=== PATIENT | male | born 1965 | race Caucasian/White ===

== ENCOUNTER 2016-11-22 19:51 | Inpatient (IN) | payer MEDICARE, OTHER ==
--- NOTE | ~2016-11-22 | PN ---
Unit #: [id number] #: [id number] Patient: ARABELLA MCCOY [id number] [facility] [address] [place] [address] [id number] I MR#: [id number] NAME: ARABELLA MCCOY ROOM: [facility] Age: 51 Sex: M Admission Date: 11/22/2016 : 1965 Attending Physician: Jorge Jang M.D. Admitting Physician: Jorge Jang M.D. Primary Care Physician: Primary Care Physician Sylvie [facility] PROGRESS NOTES DATE OF SERVICE: 12/04/2016 SUBJECTIVE Mr. Simons is a 51-year-old white male who was seen today and chart was reviewed, and case was discussed with the staff. He has been anxious, withdrawn, and rather seclusive himself. Meanwhile, he has been cooperative with treatment recommendation and has been taking the medications and tolerating them fairly well with no reported side effects. MENTAL STATUS EXAMINATION Middle-aged white male who was casually dressed with fair personal hygiene, appears to be in no acute distress or discomfort. He was awake and alert on interaction with intact orientation. His mood was anxious with a congruent affect. His speech was slow and tangential. His thought processes were disorganized with some looseness of associations. His insight and judgment remain slightly impaired. TREATMENT PLAN 1. We will continue him on his current medications and treatment protocol. We will monitor his response to medications and make further adjustments as needed. 2. We will continue to follow up. Dictated by... Nanci Stevenson/omaira TD: 12/04/2016 13:59 JOB #: [id number] [facility] PROGRESS NOTES Page 1 of 1 X Jorge Jang MD PROGRESS NOTE
--- NOTE | ~2016-11-22 | PN ---
Unit #: [id number] #: [id number] Patient: ARABELLA MCCOY [id number] [facility] [address] [place] [address] [id number] MR#: [id number] NAME: ARABELLA MCCOY ROOM: P121 Age: 51 Sex: M Admission Date: 11/22/2016 : 1965 Attending Physician: Jorge Jang M.D. Admitting Physician: Jorge Jang M.D. Primary Care Physician: Primary Care Physician Sylvie VILLALTA NOTES DATE 11/29/2016 DISCUSSION Mr. Mccoy is a 51-year-old white male who was seen today and chart was reviewed and case was discussed with the staff. He reports persistent depression and anxiety. Feelings of hopelessness and suicidal ideations. Meanwhile, he was seen in consultation by Dr. Randolph for ECT and it was on patient's own request. However, Dr. Randolph does not feel that patient is a good candidate for ECT or was going benefit much from that treatment modality and as such medications has been maintained with ongoing adjustment and participation and therapy groups. MENTAL STATUS EXAMINATION Middle-aged white male who was casually dressed with fair personal hygiene and appears to be in no acute distress or discomfort. He was awake and alert on interaction with intact orientation. His mood was anxious and depressed with congruent affect. His speech is slow and restricted in content. He reports having suicidal ideations but denies any homicidal ideations. His insight and judgement remains significantly impaired. TREATMENT PLAN 1. Will continue on his current medications and treatment protocol. Will monitor his response to the medications and make further adjustments as needed. 2. Will continue to follow up. Dictated by... Nanci Stevenson/mary TD: 11/30/2016 16:45 JOB #: [id number] Unit #: [id number] #: [id number] Patient: ARABELLA MCCOY AMBAR NOTES Page 1 of 1 X Jorge Jang MD PROGRESS NOTE
--- NOTE | ~2016-11-22 | DS ---
Unit #: [id number] #: [id number] Patient: ARABELLA MCCOY [id number] [facility] [place] [address] [id number] I MR#: [id number] NAME: ARABELLA MCCOY ROOM: [facility] Age: 51 Sex: M Admission Date: 11/22/2016 : 1965 Discharge Date: 12/04/2016 Attending Physician: Jorge Jang M.D. Primary Care Physician: Primary Care Physician No DISCHARGE SUMMARY IDENTIFYING DATA Mr. Simons is a 51-year-old white male who was self-referred to the hospital. DISCHARGE DIAGNOSES Psychiatric: Bipolar disorder, most recent episode depressed, recurrent, moderate, without psychotic features. Medical: Hypertension, dyslipidemia, coronary artery disease. Stressors: Moderate psychosocial stressors. HISTORY OF PRESENT ILLNESS Please see initial psychiatric evaluation for details. PAST PSYCHIATRIC HISTORY Please see initial psychiatric evaluation for details. PAST MEDICAL HISTORY Please see initial psychiatric evaluation for details. HOSPITAL COURSE The patient was [facility] and was oriented to the hospital environment. Routine p.r.n. medications were initiated, and he was started back on his home medications including his Seroquel and medications were adjusted. He was referred to Dr. Randolph for ECT since Effexor was started and then later increased, and he was closely monitored and appears taking the medication regularly and was tolerating them fairly well and was able to show a decent therapeutic response and as such, it was decided that he will be discharged home and will continue treatment on an outpatient basis. DISCHARGE CONDITION Stable. PROGNOSIS Fair. Dictated by... Jorge Jang M.D. Unit #: [id number] #: [id number] Patient: ARABELLA MCCOY IAA/modl TD: 12/28/2016 12:05 JOB #: [id number] DISCHARGE SUMMARY Page 1 of 1 X Jorge Jang MD X DISCHARGE SUMMARY
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
--- NOTE | ~2016-11-22 | CO ---
Unit #: [id number] #: [id number] Patient: ARABELLA MCCOY [id number] [facility] [address] [place] [address] [id number] MR#: [id number] NAME: ARABELLA MCCOY ROOM: [facility] Age: 51 Sex: M Admission Date: 11/22/2016 : 1965 Attending Physician: Jorge Jang M.D. Primary Care Physician: Primary Care Physician No CONSULTATION REPORT REASON FOR CONSULTATION To evaluate for appropriateness of electroconvulsive therapy. HISTORY OF PRESENT ILLNESS The patient is a 51-year-old gentleman, who [facility] with a long history of polysubstance abuse including abuse of crystal meth in the past. The patient complains of depression, loss of interest, decreased appetite, poor focus and concentration, chronic depression that has been ongoing for the last twenty-plus years. He has a very long history of substance abuse which includes LSD in the past, cocaine, marijuana, more recently crystal meth. There have been no successful forays into treatment programs that I can tell from his record and he doesn't indicate that he has ever been in treatment. He has no specific plan for maintaining any sobriety and there doesn't seem to be any plan in place at this point to keep him from using drugs again. The patient also has a history of alcohol abuse which is indicated in his medical record where he is drinking, at least, two or three beers a day. On evaluation, the patient does appear to be depressed. He does have some psychomotor retardation difficulty in articulating his speech. He complains of depression, loss of interest in activities, no expressed suicidal ideation was noted on evaluation with me today. He continues to be fairly unkempt, disheveled, a little bit anxious and some disorganization noted in his thought process, but for the most part, he is coherent. SUBSTANCE ABUSE HISTORY As stated above, he has a history of alcohol, cannabis, methamphetamine abuse. He has used hallucinogens in the past and, in his words, pretty much anything he can get his hands on when he was younger. PAST PSYCHIATRIC HISTORY He has been treated at inpatient hospital before he was apparently at [facility] recently at which point he was given a few ECTs but it doesn't seem to have had much of an effect. He has been on Seroquel not really responding much to that. He has been on Zoloft and Paxil in the past though he really doesn't indicate that he has had much of a response to that but there doesn't seem to be much else in the way of pharmacologic trials in the past to treat his depressive symptoms and it doesn't seem to be much in the way of any periods of sobriety in which he has been treated in the past either. PAST MEDICAL HISTORY The patient has a history of substance abuse as stated above. He has high Unit #: [id number] #: [id number] Patient: ARABELLA MCCOY blood pressure, hyperlipidemia, coronary artery disease, and has had two heart attacks in the past, history of angioplasty and he does have stents. There has been some report of a seizure disorder. He has peripheral vascular disease. He has had a bilateral fem-pop done in the past and he has a history of diabetes. PAST SURGICAL HISTORY He has had abdominal surgery for appendectomy and also surgery on his right elbow in the past. ALLERGIES He is allergic to IV dye. MEDICATIONS Please see the patient's hospital MAR for full list of medications. PHYSICAL EXAMINATION The patient's physical was performed, charted, and noted by the house physician at the time of his admission on the 23 of December. FAMILY/SOCIAL HISTORY Please see his psychiatric hospital record for full details. MENTAL STATUS EXAMINATION On exam, the patient is cooperative, he is sitting alert on his bed. He does answer questions appropriately. He has some difficulty articulating his speech but he is able to express his thoughts and feelings in a clear and coherent manner. The patient's thought process appears to be goal-directed and organized today. There is no evidence of psychosis noted. Memory and concentration are fully intact and he is oriented to person, place, time, and situation today. His insight and judgment are fair. Intelligence appears to be within the normal range for a person with his educational background. The patient's insight and judgment are fair. He has no homicidal ideation and no stated suicidal ideation noted today. PROGNOSIS Fair. STRENGTHS Include, access to care. BARRIERS Chronic substance abuse with no real clear outline or plan of how he is going to maintain any sobriety in the future. DIFFERENTIAL DIAGNOSIS Goodridge I: F34.1. Polysubstance abuse particularly crystal meth abuse, and Alcohol abuse vs dependence. Goodridge II: Deferred. Goodridge III: Nothing acute. Goodridge IV: Goodridge V: PLAN 1. The patient doesn't really much meet the criteria for electroconvulsive therapy at this point. There is no real clear plan Unit #: [id number] #: [id number] Patient: ARABELLA MCCOY for what is going to be done to keep him from using drugs again once he gets out of the hospital. He didn't seem to get anything out of the ECTs that he received at [facility] so it is pretty unclear that he is going to get any kind of benefit from it here, and it doesn't really seem that he has had much of an adequate pharmacological trial to treat his mood symptoms and certainly doesn't have any significant periods of sobriety in order to track his actual mood response, so in the absence of any of that kind of planning it is very unlikely that the ECT is going to be of any benefit for him. 2. No additional recommendations. Dictated by... Ozzie Randolph M.D. ROMULO/lorne TD: 11/27/2016 11:46 JOB #: [id number] CONSULTATION REPORT Page 1 of 1 X Ozzie Randolph MD <ELECTRONICALLY SIGNED> 04/24/17 1702 X CONSULTATION REPORT
--- NOTE | ~2016-11-22 | PN ---
Unit #: [id number] #: [id number] Patient: ARABELLA MCCOY [id number] [facility] [address] [place] [address] [id number] MR#: [id number] NAME: ARABELLA MCCOY ROOM: P121 Age: 51 Sex: M Admission Date: 11/22/2016 : 1965 Attending Physician: Jorge Jang M.D. Admitting Physician: Jorge Jang M.D. Primary Care Physician: Primary Care Physician Sylvie CONNORS PROGRESS NOTES DATE 11/24/2016 DISCUSSION Mr. Mccoy is a 51-year-old white male with mood disorder and psychosis who was seen today and chart was reviewed and case was discussed with the staff. He was once again seen to be rather rambling and mumbling at best and having significant issues expressing himself with some thought blocking. Meanwhile, he has been cooperative with treatment recommendations and has been taking medications and tolerating them fairly well. MENTAL STATUS EXAMINATION Middle-aged white male who was casually dressed with marginal personal hygiene and appears to be in no acute distress or discomfort. He was awake and alert with impaired attention and concentration. His mood was anxious with congruent affect. His speech is slow and restricted in content. His thought processes were disorganized with some looseness of associations and flight of ideas. His insight and judgement remains significantly impaired. TREATMENT PLAN 1. Will continue his current medications and treatment protocol. Will monitor his response to medications and make further adjustments as needed. 2. Will continue to follow up. Dictated by... Nanci Stevenson/mary TD: 11/24/2016 15:43 JOB #: [id number] Unit #: [id number] #: [id number] Patient: ARABELLA MCCOY PROGRESS NOTES Page 1 of 1 X Jorge Jang MD PROGRESS NOTE
--- NOTE | ~2016-11-22 | PN ---
Unit #: [id number] #: [id number] Patient: ARABELLA MCCOY [id number] [facility] [address] [place] [address] [id number] MR#: [id number] NAME: ARABELLA MCCOY ROOM: P121 Age: 51 Sex: M Admission Date: 11/22/2016 : 1965 Attending Physician: Jorge Jang M.D. Admitting Physician: Jorge Jang M.D. Primary Care Physician: Primary Care Physician Sylvie CONNORS PROGRESS NOTES DATE December 02, 2016 DISCUSSION Mr. Mccoy is a 51-year-old white male, who was seen today and chart was reviewed and the case was discussed with the staff. He has been anxious, withdrawn, and seclusive to himself. He has been cooperative with the treatment recommendations and he has been taking the medications and tolerating them fairly well. MENTAL STATUS EXAMINATION Middle-aged white male, who was casually dressed with fair personal hygiene and appears to be in no acute distress or discomfort. He was awake and alert on interaction with intact orientation. His mood is anxious with a congruent affect. His speech is slow and goal-directed. He denies any suicidal or homicidal ideations. His insight and judgment remain slightly impaired. TREATMENT PLAN 1. We will continue him on his current medications and treatment protocol, and will monitor his response to the medications, and make further adjustments as needed. 2. We will continue to followup. Dictated by... Nanci Stevenson/lorne TD: 12/05/2016 10:45 JOB #: [id number] Unit #: [id number] #: [id number] Patient: ARABELLA MCCOY PROGRESS NOTES Page 1 of 1 X Jorge Jang MD PROGRESS NOTE
--- NOTE | ~2016-11-22 | PN ---
Unit #: [id number] #: [id number] Patient: ARABELLA MCCOY [id number] [facility] [address] [place] [address] [id number] MR#: [id number] NAME: ARABELLA MCCOY ROOM: P121 Age: 51 Sex: M Admission Date: 11/22/2016 : 1965 Attending Physician: Jorge Jang M.D. Admitting Physician: Jorge Jang M.D. Primary Care Physician: Primary Care Physician Sylvie VILLALTA NOTES DATE 11/30/2016 DISCUSSION Mr. Mccoy is a 51-year-old, white male who was seen today and chart was reviewed and case was discussed with the staff. He has been anxious, withdrawn though has not shown any agitation, irritability and he has been cooperative with treatment recommendations and has been taking medications and tolerating them fairly well with no reported side effects. MENTAL STATUS EXAM Middle-aged male who was casually dressed with fair personal hygiene, appears to be in no acute distress or discomfort. He was awake and alert on interaction with intact orientation. His mood was anxious with congruent affect. His speech was slow and restricted in content. His thought processes were disorganized with some looseness of associations and flight of ideas and auditory hallucinations. His insight and judgement remains significantly impaired. TREATMENT PLAN 1. We will continue him on his current medications and treatment protocol. We will monitor his response to the medications and make further adjustments as needed. 2. We will continue to follow up. Dictated by... Nanci Stevenson/chaka TD: 12/04/2016 03:06 JOB #: [id number] Unit #: [id number] #: [id number] Patient: ARABELLA MCCOY PROGRESS NOTES Page 1 of 1 X Jorge Jang MD PROGRESS NOTE
--- NOTE | ~2016-11-22 | PN ---
Unit #: [id number] #: [id number] Patient: ARABELLA MCCOY [id number] [facility] [address] [place] [address] [id number] MR#: [id number] NAME: ARABELLA MCCOY ROOM: P121 Age: 51 Sex: M Admission Date: 11/22/2016 : 1965 Attending Physician: Jorge Jang M.D. Admitting Physician: Jorge Jang M.D. Primary Care Physician: Primary Care Physician Sylvie CONNORS PROGRESS NOTES DATE November 26, 2016 DISCUSSION Mr. Mccoy is a 51-year-old white male, who was seen today and chart was reviewed and the case was discussed with the staff. He has been anxious, withdrawn, but has not shown any agitation or irritability and has been calm and cooperative but has been having bizarre behavior with persistent depressive symptoms and has been participating. MENTAL STATUS EXAMINATION Young white male, who was casually dressed with fair personal hygiene and appears to be in no acute distress or discomfort. He was awake and alert on interaction with intact orientation. His mood is anxious with a congruent affect. He reports having suicidal ideation but denies homicidal ideations, and also denies any auditory or visual hallucinations. His insight and judgment remain slightly impaired. TREATMENT PLAN 1. We will continue him on his current medications and treatment protocol, and will monitor his response to the medications, and make further adjustments as needed. 2. We will continue to followup. Dictated by... Nanci Stevenson/lorne TD: 11/27/2016 09:30 JOB #: [id number] Unit #: [id number] #: [id number] Patient: ARABELLA MCCOY PROGRESS NOTES Page 1 of 1 X Jorge Jang MD PROGRESS NOTE
--- NOTE | ~2016-11-22 | PN ---
Unit #: [id number] #: [id number] Patient: ARABELLA MCCOY [id number] [facility] [address] [place] [address] [id number] I MR#: [id number] NAME: ARABELLA MCCOY ROOM: [facility] Age: 51 Sex: M Admission Date: 11/22/2016 : 1965 Attending Physician: Jorge Jang M.D. Admitting Physician: Nanci Stevenson PROGRESS NOTES DATE OF SERVICE: 12/03/2016 SUBJECTIVE Mr. Mccoy is a 51-year-old white male with mood disorder, who was seen today and chart was reviewed, and case was discussed with the staff. He has been anxious, withdrawn, though has not shown any agitation, irritability, and he has been calm and cooperative with treatment recommendations. He has been taking medications and tolerating them fairly well. MENTAL STATUS EXAMINATION Middle-aged white male who was casually dressed with fair personal hygiene, and appears to be in no acute distress or discomfort. He was awake and alert on interaction with intact orientation. His mood was anxious with a congruent affect. His speech was slow and goal directed. He denies any suicidal or homicidal ideations, and also denies any auditory or visual hallucinations. His insight and judgment remain slightly impaired. TREATMENT PLAN 1. We will continue him on his current medications and treatment protocol. We will monitor his response and make further adjustments as needed. 2. We will continue to follow up. Dictated by... Nanci Stevenson/rigol TD: 12/04/2016 13:27 JOB #: [id number] Unit #: [id number] #: [id number] Patient: ARABELLA MCCOY PROGRESS NOTES Page 1 of 1 X Jorge Jang MD PROGRESS NOTE
--- NOTE | ~2016-11-22 | PN ---
Unit #: [id number] #: [id number] Patient: ARABELLA MCCOY [id number] [facility] [address] [place] [address] [id number] MR#: [id number] NAME: ARABELLA MCCOY ROOM: [facility]121 Age: 51 Sex: M Admission Date: 11/22/2016 : 1965 Attending Physician: Jorge Jang M.D. Admitting Physician: Jorge Jang M.D. Primary Care Physician: Primary Care Physician Sylvie CONNORS PROGRESS NOTES DATE 12/01/2016 DISCUSSION Mr. Mccoy is a 51-year-old, white male with mood disorder who was seen today and chart was reviewed and case was discussed with the staff. He has been anxious withdrawn and has been exhibiting some persistent depressive symptoms. Meanwhile, he has been taking medications and tolerating them fairly well with no reported side effects. MENTAL STATUS EXAM Middle-aged white male who was casually dressed with fair personal hygiene, appears to be in no acute distress or discomfort. He was awake and alert on interaction with intact orientation. His mood was anxious and depressed with congruent affect. He denies any suicidal or homicidal ideation. His insight and judgement remains slightly impaired. TREATMENT PLAN 1. We will continue him on his current medications and treatment protocol. We will monitor his response and make further adjustments as needed. 2. We will continue to follow up. Dictated by... Nanci Stevesnon/chaka TD: 12/05/2016 01:50 JOB #: [id number] Unit #: [id number] #: [id number] Patient: ARABELLA MCCOY PROGRESS NOTES Page 1 of 1 X Jorge Jang MD PROGRESS NOTE
--- NOTE | ~2016-11-22 | PN ---
Unit #: [id number] #: [id number] Patient: ARABELLA MCCOY [id number] [facility] [address] [place] [address] [id number] I MR#: [id number] NAME: ARABELLA MCCOY ROOM: [facility] Age: 51 Sex: M Admission Date: 11/22/2016 : 1965 Attending Physician: Jorge Jang M.D. Admitting Physician: Jorge Jang M.D. Primary Care Physician: Primary Care Physician Sylvie CONNORS PROGRESS NOTES DATE 11/25/2016 DISCUSSION Mr. Mccoy is a 51-year-old white male who was seen today and chart was reviewed and case was discussed with the staff. He once again was found lying in his bed. He was able to get up and talk to me. However, he appears to have some speech impediment as he speaks rapidly and at times he mumbles and slurs and stutters and is difficult to understand. However, he has been experiencing significant anxiety and states that he would like to get his records from [facility], that he was getting shock treatments at [facility] and he felt that they were beneficial and the medications that he is currently taking are not effectively helping with his depression and anxiety and that he would like to be considered a candidate for shock treatments again. MENTAL STATUS EXAMINATION Middle-aged white male who was casually dressed with marginal personal hygiene and appears to be in no slight distress or discomfort. He was awake and alert with impaired attention and concentration. His mood was anxious with a congruent affect. His speech is slow and tangential. His thought processes were disorganized with some looseness of associations and flight of ideas. His insight and judgment remains significantly impaired. TREATMENT PLAN 1. We will continue his current medications and treatment protocol and we will consider making a ECT right after this weekend. 2. Will continue to follow up. Dictated by... Jorge Jang M.D. IAA/to Unit #: [id number] #: [id number] Patient: ARABELLA MCCOY TD: 11/26/2016 09:18 JOB #: [id number] [facility] PROGRESS NOTES Page 1 of 1 X Jorge Jang MD PROGRESS NOTE
--- NOTE | ~2016-11-22 | PN ---
Unit #: [id number] #: [id number] Patient: ARABELLA MCCOY [id number] [facility] [address] [place] [address] [id number] I MR#: [id number] NAME: ARABELLA MCCOY ROOM: [facility] Age: 51 Sex: M Admission Date: 11/22/2016 : 1965 Attending Physician: Jorge Jang M.D. Admitting Physician: Jorge Jang M.D. Primary Care Physician: Primary Care Physician Sylvie VILLALTA NOTES DATE OF SERVICE 11/28/2016 DISCUSSION Mr. Mccoy is a 51-year-old white male with mood disorder and psychosis who was seen today. Chart was reviewed and case was discussed with the staff who reports the patient continues to exhibit some significant depressive symptoms. Meanwhile, he has been taking the medications and tolerating them fairly well. MENTAL STATUS EXAMINATION Middle-aged white male who is casually dressed with fair personal hygiene, appears to be in no acute distress or discomfort. He was awake and alert on interaction with intact orientation. His mood is anxious and depressed with congruent affect. He reports having suicidal ideation but denies any intent or plan. His insight and judgment remain slightly impaired. TREATMENT PLAN 1. We will continue him on his current treatment protocol. We will monitor his response to the medications and make further adjustments as needed. 2. We will continue to follow up. Dictated by... Jorge Jang M.D. PB/paulo TD: 11/29/2016 09:47 JOB #: [id number] [facility] PROGRESS NOTES Page 1 of 1 X Jorge Jang MD PROGRESS NOTE
--- NOTE | ~2016-11-22 | PN ---
Unit #: [id number] #: [id number] Patient: ARABELLA MCCOY [id number] [facility] [address] [place] [address] [id number] MR#: [id number] NAME: ARABELLA MCCOY ROOM: [facility] Age: 51 Sex: M Admission Date: 11/22/2016 : 1965 Attending Physician: Jorge Jang M.D. Admitting Physician: Jorge Jang M.D. Primary Care Physician: Primary Care Physician Sylvie CONNORS PROGRESS NOTES DATE November 27, 2016 DISCUSSION Arabella Mchugh is a 51-year-old white male, with mood disorder, who was seen today and chart was reviewed and the case was discussed with the staff. He remains anxious and withdrawn, disorganized, and has been exhibiting and reporting depressive symptoms and hopelessness and suicidal ideation, and he has been taking the medications and tolerating them fairly well. He has not been able to show a therapeutic response and has been asking for me to refer him to electroconvulsive therapy as he reports that he has gotten shock treatments at [facility] before and they were beneficial. MENTAL STATUS EXAMINATION Middle-aged white male, who was casually dressed with fair personal hygiene and appears to be in no acute distress or discomfort. He was awake and alert with impaired attention and concentration. His mood is anxious and depressed with a congruent affect. His speech is slow and restricted in content. He reports having suicidal ideations but denies any homicidal ideations. His insight and judgment remain slightly impaired. TREATMENT PLAN 1. We will continue him on his current medications and treatment protocol, and will add Effexor, an antidepressant, and will also refer him for electroconvulsive therapy consultation. 2. We will continue to followup. Dictated by... Nanci Stevenson/lorne TD: 11/27/2016 09:57 JOB #: [id number] Unit #: [id number] #: [id number] Patient: ARABELLA MCCOY PROGRESS NOTES Page 1 of 1 X Jorge Jang MD PROGRESS NOTE
--- NOTE | ~2016-11-22 | HP ---
Unit #: [id number] #: [id number] Patient: ARABELLA MCCOY [id number] [facility] [address] [place] [address] [id number] I MR#: [id number] NAME: ARABELLA MCCOY ROOM: [facility] Age: 51 Sex: M Admission Date: 11/22/2016 : 1965 Attending Physician: Jorge Jang M.D. Admitting Physician: Jorge Jang M.D. Primary Care Physician: Primary Care Physician No HISTORY AND PHYSICAL HISTORY OF PRESENT ILLNESS Arabella is a 51 year old admitted to [address] [place] [address] after verbalizing wanting to hurt himself. PAST MEDICAL HISTORY 1. History of illicit substance abuse to include methamphetamine. 2. High blood pressure. 3. Hyperlipidemia. 4. Coronary artery disease. a. [place] x2. b. Angioplasty with stents. 5. Seizure disorder. 6. Peripheral vascular disease. a. Bilateral fem/pop. 7. Diabetes mellitus. PAST SURGICAL HISTORY 1. As above. 2. Exploratory abdomen. 3. Appendectomy. 4. Right elbow. ALLERGIES IVP dye. SOCIAL HISTORY Smokes less than 1 pack per day. Drinks alcohol rarely. Admits to a history of illicit substance abuse to include methamphetamine. FAMILY HISTORY Medically noncontributory. REVIEW OF SYSTEMS CONSTITUTIONAL: No fever or chills. HEENT: Denies any sore throat, ear pain or runny nose. CARDIOVASCULAR: Denies chest pain, irregular heart rhythm or palpitations. CHEST: Denies shortness of breath or cough. No hemoptysis. GASTROINTESTINAL: Denies nausea, vomiting, diarrhea or chronic constipation. ENDOCRINE: Denies history of increased thirst or urination. No recent significant weight loss or gain. GENITOURINARY: Denies dysuria, frequency, or hematuria. SKIN: Denies any rashes. Unit #: [id number] #: [id number] Patient: ARABELLA MCCOY HEMATOLOGIC: Denies history of increased bleeding or bruising. MUSCULOSKELETAL: Denies any hot, swollen joints. No generalized muscle pain. NEUROLOGIC: Denies problems with vision or speech. No frequent, severe headaches. No numbness, tingling or weakness in any extremities. Denies loss of bladder or bowel control. CURRENT MEDICATIONS 1. Detox protocol. 2. Lipitor 40 mg daily. 3. Pepcid 40 mg daily. 4. Toprol XL 25 mg b.i.d. 5. Glucophage 500 mg b.i.d. 6. Enteric coated aspirin 81 mg daily. 7. Cozaar 100 mg daily. 8. Norvasc 10 mg daily. 9. Plavix 75 mg daily. PHYSICAL EXAMINATION GENERAL: Alert, well-nourished, in no apparent distress. VITAL SIGNS: Blood pressure 158/72, heart rate 80, respirations 16, temperature 98.6. WEIGHT: 160. HEIGHT: 5 feet 10 inches. SKIN: Warm and dry without rash or lesion. HEENT: Normocephalic. TMs not viewed. Oral and nasal passages clear. Conjunctivae clear. PERRLA. EOMs intact. NECK: Supple without lymphadenopathy or thyromegaly. HEART: Regular rate and rhythm without murmur. LUNGS: Clear. ABDOMEN: Soft, nontender. : Not done. EXTREMITIES: No evidence of cyanosis, clubbing or edema. Moves all without focal deficit. NEUROLOGICAL: Grossly within normal limits. Cranial Nerves: II: Visual polk are intact. III, IV AND : Extraocular movements are intact. Pupils are equal, round and reactive to light. V: Facial sensation is grossly normal. VII: Facial movements and expression are normal. VIII: Auditory acuity grossly intact. IX, X: Uvula is midline. Phonation is normal. XI: Patient shrugs shoulders and turns head normally. XII: Tongue protrudes in the midline. Sensory and Motor Function: Sensory and motor sensation is grossly normal. Motor: moves all extremities well. Coordination: Gait is normal. Deep Tendon Reflexes: Intact. IMPRESSION Psychiatric admission. RECOMMENDATIONS PSYCHIATRIC: Per psychiatrist. MEDICAL: 1. See no contraindications to participate in facility's activities. 2. Continue Lipitor, Toprol, Glucophage, enteric coated aspirin, Cozaar, Norvasc and Plavix. MEDICAL PROGNOSIS Unit #: [id number] #: [id number] Patient: ARABELLA MCCOY. MEDICAL CONDITION Stable. Dictated by... Anyi Wilhelm P.A.-C. for Nanci Duffy/mary TD: 11/23/2016 20:50 JOB #: [id number] HISTORY AND PHYSICAL Page 1 of 1 X Anyi Wilhelm HISTORY AND PHYSICAL
[~2016-11-22 19:51] MED LIST: ASPIRIN PO; BLOOD PRESSURE MED; CHOLESTEROL MED; METFORMIN PO; NAPROSYN500 MG PO; PLAVIX; SEROQUEL; TRAZODONE
[2016-11-23 09:49] LABS: BASOPHIL% 0.4 % (0-2.5); DIFF IND NO; EOSINOPHIL# 0.2 X10e3 (0-0.7); EOSINOPHIL% 3.1 % (0.0-7.0); LYMPHOCYTE# 2.5 X10e3 (1.0-3.5); LYMPHOCYTE% 32.1 % (17.0-45.0); MEAN CELL VOLUME 85.3 FL (83-96); MEAN CORPUSCULAR HEMOGLOBIN 28.4 PG (28-34); MEAN CORPUSCULAR HGB CONC 33.2 g/dL (30-36); MONOCYTE# 0.8 X10e3 (0-1.0); MONOCYTE% 10.2 % (3.0-12.0); NEUTROPHIL# 4.2 X10e3 (1.5-7.1); NEUTROPHIL% 54.2 % (40-75); PLATELET COUNT 271 X10e3 (140-420); RED BLOOD COUNT 4.57 X10e (3.90-5.60); RED CELL DISTRIBUTION WIDTH 15.5 % (11.0-15.5); WHITE BLOOD COUNT 7.7 X10e3 (4.0-10.5)
[2016-11-23 10:06] LABS: ALBUMIN SERUM 3.8 g/dL (3.5-5.0); BILIRUBIN,TOTAL 0.3 mg/dL (0.2-2.0); CALCIUM SERUM 9.5 mg/dL (8.4-10.2); GLOM FILT RATE Estimated 85.6 mL/min (>60); POTASSIUM 4.7 mmol/L (3.5-5.1); PROTEIN TOTAL SERUM 6.1 g/dL (6.0-8.3)
== END 2016-12-04 15:35 | disposition home or self-care (01) | DRG 885 ==
LOC: P1S 19:51
PROVIDERS: Psychiatry & Neurology Psychiatry
DX: F31.32 Bipolar disorder, current episode depressed, moderate (principal); E11.9 Type 2 diabetes mellitus without complications; R45.851 Suicidal ideations; F19.20 Other psychoactive substance dependence, uncomplicated; I10 Essential (primary) hypertension; F29 Unspecified psychosis not due to a substance or known physiological condition; J44.9 Chronic obstructive pulmonary disease, unspecified; I25.10 Atherosclerotic heart disease of native coronary artery without angina pectoris; I25.2 Old myocardial infarction; Z95.5 Presence of coronary angioplasty implant and graft; I73.9 Peripheral vascular disease, unspecified; F17.200 Nicotine dependence, unspecified, uncomplicated; Z91.041 Radiographic dye allergy status; F34.1 Dysthymic disorder; F10.20 Alcohol dependence, uncomplicated
CPT/HCPCS: 80053; 85025; J3486